=== PATIENT | male | born 1950 | race Caucasian/White ===

== ENCOUNTER 2018-06-10 13:43 | Emergency (ER) | payer OTHER ==
[~2018-06-10] VITALS: Ht 172.7 cm; Wt 95.3 kg
[2018-06-10] MEDS ORDERED: PACERONE 200 M200 M1 PO (14:08)
[2018-06-10] MEDS ORDERED: BACITRAYCIN PLU28 GM TOP (14:09)
[2018-06-10] MEDS ORDERED: LISINOPRIL2.5 MG PO (14:09)
[2018-06-10] MEDS ORDERED: FUROSEMIDE 40 M40 M1 PO (14:09)
[2018-06-10] MEDS ORDERED: ENOXAPARIN40 MG/0.1 SUBQ (14:09)
[2018-06-10] MEDS ORDERED: LOPRESSOR25 PO (14:10)
[2018-06-10] MEDS ORDERED: NICOTINE TRANSD21 M1 (14:10)
[2018-06-10] MEDS ORDERED: PROTONIX40 M1 PO (14:11)
[2018-06-10] MEDS ORDERED: SSD CREAM 1% 5050 GM TOP (14:12)
[2018-06-10] MEDS ORDERED: POLYSACCHARIDE150 MG PO (14:12)
[2018-06-10 16:25] VITALS: BP 125/73
== END 2018-06-10 16:18 | disposition home or self-care (01) ==
LOC: ER 13:43
DX: R13.10 Dysphagia, unspecified (principal); F17.210 Nicotine dependence, cigarettes, uncomplicated